=== PATIENT | female | born 1950 | race Caucasian/White ===

== ENCOUNTER 2016-11-02 13:37 | Emergency (ER) | payer MEDICARE, OTHER ==
[~2016-11-02] VITALS: Ht 172.7 cm; Wt 72.6 kg
[2016-11-02 14:59] VITALS: BP 88/30
[2016-11-02] MEDS ORDERED: LORazepam 2 MG/ML VIAL IM ONE (15:00)
--- NOTE | 2016-11-02 15:11 | PHYS DOC ---
General Chief Complaint: MECHANICAL FALL Stated Complaint: FALL Time Seen by MD: 14:26 Source: patient, [facility] records Exam Limitations: clinical condition Problems: History of Present Illness Initial Comments Patient is a 66-year-old female sent to the emergency department from [facility] for evaluation of fall injury. detention records indicate that the patient apparently lost her balance and fell hitting the top of her head at 2 AM. 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 The fall was over 12 hours ago she has a small 1 cm scalp laceration which is scabbed over. There is mild bruising surrounding but no open wound. It is unknown whether the patient has any new neurologic deficits, it is also reported that the patient was having some neck pain. When asked the patient was able to communicate that her scalp pain was 3 out of 10 but it is impossible to tell if she is hurting otherwise. No other real history is obtainable from the patient has her neurologic diseases severe. Occurred: this morning Severity: mild Injuries/Pain Location: head Context: lost balance Loss of Consciousness: no loss of consciousness Modifying Factors: improves with other Associated Symptoms: headache, other Allergies: Coded Allergies: latex (Verified Allergy, Unknown, rash, 02/22/16) Past Medical History Medical History: other (Walterville's disease, anxiety, hypothyroidism, seizures , dystonia) Surgical History: other (neck surgery NOS) Social History Smoker: non-smoker Alcohol: none Drugs: none Review of Systems Constitutional: denies chills, denies fever Ears, Nose, Mouth, Throat: denies ear discharge, denies nose discharge, denies epistaxis Respiratory: denies cough, denies shortness of breath Cardiovascular: denies edema, denies syncope Gastrointestinal: denies diarrhea, denies nausea, denies vomiting Genitourinary: denies dysuria, denies frequency, denies hematuria Musculoskeletal: see HPI, denies joint swelling Psychiatric/Neurological: see HPI Physical Exam General Appearance: no apparent distress (disheveled and) Head: other (a 1 cm scab scalp laceration is noted at the right FOOT, otherwise the head is normocephalic atraumatic negative Bansal sign negative raccoon eyes) Eyes: bilateral eye normal inspection, bilateral eye PERRL, bilateral eye other (as tested) Ears, Nose, Mouth, Throat: hearing grossly normal, no evidence of ENT injury ( no ear or nose discharge no fluid visualized behind TMs), no dental injury Neck: full range of motion, normal inspection Cardiovascular/Respiratory: normal peripheral pulses, normal breath sounds Gastrointestinal: non tender, soft Back: no CVA tenderness, no vertebral tenderness Extremities: normal range of motion, non-tender, no pedal edema, pelvis stable Neurologic/Psychiatric: alert, other (appears oriented 3 although communication nearly impossible, cranial nerves normal as tested no lateralizing neuro deficits, constant hemiballismus take an choreatic movements) Skin: warm/dry [place] Coma Score Best Eye Response: (4) open spontaneously Best Verbal Response: (5) oriented Best Motor Response: (6) obeys commands Jah Total: 15 Orders, Labs, Meds Ativan given to the patient to try to quell her movements it is a when necessary med listed on her marked 1509: RN notifies me that the patient has fallen asleep. He will take this opportunity to obtain CT head and cervical spine to rule out any traumatic pathology resulted from a fall. PATIENT: CRIS LACY ACCOUNT: [id number] : 1950 LOCATION: ER AGE: 66 SEX: F EXAM STATUS: REG ER ORD. PHYSICIAN: IVIS RAIN DO REASON: fall, head/neck pain PROCEDURE: CT HEAD AND CERVICAL SPINE WO CT head and cervical spine without contrast 11/02/2016 at 1515 hours Indication: Fall, head and neck pain. Comparison: None available Technique: Multiple axial noncontrast CT images of the head were obtained from the skull base through the vertex. Multiple axial noncontrast CT images of the cervical spine were obtained. Coronal and sagittal reformats are provided. Findings: Examination is markedly limited by motion artifact. Additionally, streak artifact from calvaria limits evaluation for small extra-axial hemorrhage calvaria appears to be intact. Ventricles are enlarged, slightly at a proportion to parenchymal volume loss. Low attenuation in the periventricular and subcortical white matter is noted. No acute intracranial hemorrhage is visualized. There is no midline shift. There is no large mass. There is straightening of the normal cervical lordosis. Anterior cervical discectomy and fusion hardware is identified at C5-C7. Markedly limited for evaluation of cervical spine fractures secondary to significant motion artifact. No significantly displaced fracture is visualized. There is moderate cervical spondylosis. Impression: Markedly limited evaluation secondary to motion artifact. No definite intracranial hemorrhage is visualized. Markedly limited for evaluation of cervical spine fractures. However no large displaced fracture is visualized. PQRS Compliance Statement: One or more of the following individualized dose reduction techniques were utilized for this examination: 1. Automated exposure control 2. Adjustment of the mA and/or kV according to patient size 3. Use of iterative reconstruction technique DICTATED AND SIGNED BY: ENRICO HOLMAN MD DATE: 11/02/16 1536 CC: GRADY SIU MD; IVIS RAIN DO ~ Tetanus status is unknown and we will update that today. Cephalexin for infection prophylaxis and due to surrounding erythema. No wound closure as it in greater than 12 hours and the wound is already scabbed with hemostasis achieved. Tylenol for discomfort, follow-up with primary for wound check in 3-5 days. Departure Time of Disposition: 16:07 Disposition: 01 HOME, SELF-CARE Diagnosis: mechanical fall, scalp laceration, presumed concus Condition: GOOD Patient Instructions: Fall Prevention and Home Safety, [id number] Additional Instructions: Wash wound daily keeping it clean and dry. Fall precautions. [id number] Tylenol as needed. Prescription: Cephalexin Follow-up with primary in 3-5 days for wound check. Return to ED with new or changing symptoms. IVIS RAIN DO Nov 02, 2016 15:11
[2016-11-02] MEDS ORDERED: IV NORMAL SALINE 1,000ML 1,000 ML IV SCH (15:30)
--- NOTE | 2016-11-02 15:45 | RAD ---
CT head and cervical spine without contrast 11/02/2016 at 1515 hours Indication: Fall, head and neck pain. Comparison: None available Technique: Multiple axial noncontrast CT images of the head were obtained from the skull base through the vertex. Multiple axial noncontrast CT images of the cervical spine were obtained. Coronal and sagittal reformats are provided. Findings: Examination is markedly limited by motion artifact. Additionally, streak artifact from calvaria limits evaluation for small extra-axial hemorrhage calvaria appears to be intact. Ventricles are enlarged, slightly at a proportion to parenchymal volume loss. Low attenuation in the periventricular and subcortical white matter is noted. No acute intracranial hemorrhage is visualized. There is no midline shift. There is no large mass. There is straightening of the normal cervical lordosis. Anterior cervical discectomy and fusion hardware is identified at C5-C7. Markedly limited for evaluation of cervical spine fractures secondary to significant motion artifact. No significantly displaced fracture is visualized. There is moderate cervical spondylosis. Impression: Markedly limited evaluation secondary to motion artifact. No definite intracranial hemorrhage is visualized. Markedly limited for evaluation of cervical spine fractures. However no large displaced fracture is visualized. PQRS Compliance Statement: One or more of the following individualized dose reduction techniques were utilized for this examination: 1. Automated exposure control 2. Adjustment of the mA and/or kV according to patient size 3. Use of iterative reconstruction technique
[2016-11-02] MEDS ORDERED: CEPH500C PO (16:09)
== END 2016-11-02 16:46 | disposition home or self-care (01) ==
LOC: ER 13:37
DX: S01.01XA Laceration without foreign body of scalp, initial encounter (principal); M54.2 Cervicalgia; F41.9 Anxiety disorder, unspecified; E03.9 Hypothyroidism, unspecified; W01.198A Fall on same level from slipping, tripping and stumbling with subsequent striking against other object, initial encounter; Y93.89 Activity, other specified; Y92.89 Other specified places as the place of occurrence of the external cause; Y99.8 Other external cause status
CPT/HCPCS: 70450; 72125; 96360; 96372; 99284; J2060; J7030

== ENCOUNTER 2018-12-20 13:04 | Emergency (ER) | payer MEDICARE, OTHER ==
[~2018-12-20] VITALS: Ht 172.7 cm; Wt 57.6 kg
[~2018-12-20 13:04] MED LIST: CEPH500C PO
--- NOTE | 2018-12-20 13:35 | PHYS DOC ---
Past History Past Medical History: Hypothyroid, Other Past Surgical History: Other Alcohol Use: None Drug Use: None Adult General Chief Complaint Chief Complaint: HEAD INJURY/TRAUMA HPI HPI 68-year-old female presents via EMS from her care facility after fall. The patient was sitting in a chair and fell out of her chair. She struck the side of her head on something on her way down and sustained a laceration. It was bleeding quite a bit and it appeared she needed sutures. They decided to call EMS and sent her to the emergency room. The patient is on hospice. She has Livingston's disease. She has occasional falls, but has not sustained a laceration recently. Her tetanus is not up-to-date. History is gleaned from her daughter who works in the emergency room as well as EMS. Review of Systems Review of Systems Constitutional: Denies fever or chills [] Eyes: Denies change in visual acuity, redness, or eye pain [] HENT: Denies nasal congestion or sore throat [] Respiratory: Denies cough or shortness of breath [] Cardiovascular: No additional information not addressed in HPI [] GI: Denies abdominal pain, nausea, vomiting, bloody stools or diarrhea [] : Denies dysuria or hematuria [] Musculoskeletal: Denies back pain or joint pain [] Integument: Scalp laceration[] Neurologic: Denies headache, focal weakness or sensory changes [] Endocrine: Denies polyuria or polydipsia [] All other systems were reviewed and found to be within normal limits, except as documented in this note. Current Medications Current Medications Current Medications Medications (Trade) Dose Ordered Sig/Madhu Start Time Stop Time Status Last Admin Dose Admin Diphtheria/ Tetanus/Acell Pertussis (Boostrix) 0.5 ml ONCE ONCE 12/20/18 13:30 12/20/18 13:31 UNV Allergies Allergies Allergies Coded Allergies Type Severity Reaction Last Updated Verified latex Allergy Unknown rash 02/22/16 Yes shellfish derived Allergy Unknown 12/20/18 Yes Physical Exam Physical Exam Constitutional: Well developed, well nourished, no acute distress, non-toxic appearance. [] HENT: Normocephalic, atraumatic, bilateral external ears normal, oropharynx moist, no oral exudates, nose normal. [] Eyes: PERRLA, EOMI, conjunctiva normal, no discharge. [] Neck: Normal range of motion, no tenderness, supple, no stridor. [] Cardiovascular:Heart rate regular rhythm, no murmur [] Lungs & Thorax: Bilateral breath sounds clear to auscultation [] Abdomen: Bowel sounds normal, soft, no tenderness, no masses, no pulsatile masses. [] Skin: 2 lacerations of the left scalp. One is linear 4 cm long and the other is linear 1 cm long.[] Back: No tenderness, no CVA tenderness. [] Extremities: No tenderness, no cyanosis, no clubbing, ROM intact, no edema. [] Neurologic: Alert and oriented X 3, normal motor function, normal sensory function, no focal deficits noted. [] Psychologic: Affect normal, judgement normal, mood normal. [] EKG EKG [] Radiology/Procedures Radiology/Procedures [] Course & Med Decision Making Course & Med Decision Making Pertinent Labs and Imaging studies reviewed. (See chart for details) The patient's labs are unremarkable. Her urinalysis is suggestive of UTI. I will treat her with 1 g of Rocephin IV in the ED. I have given her 2 mg of morphine for pain. Her lacerations were repaired with asuncion. She noted below for more details. I will discharge the patient with an additional 5 days of Cefdinir for her UTI. [] Dragon Disclaimer Dragon Disclaimer This electronic medical record was generated, in whole or in part, using a voice recognition dictation system. Laceration Repair Lac Repair Indication: []2 linear lacerations of the left parietal scalp. One 3 cm and the other 1.5 cm Procedure: Consent was obtained from the patient's family member for staple repair of her 2 scalp lacerations. No anesthesia was used. The wounds were thoroughly irrigated with normal saline. No foreign bodies were found. I repaired the 3 cm laceration with 4 asuncion. I repaired the 1.5 cm laceration with 2 asuncion. There was good skin approximation. No dressing was applied. Total repaired wound length: 3cm, 1.5cm Other Items: None The patient tolerated the procedure well. Complications: None. Departure Departure: Impression: Primary Impression: Fall from chair Additional Impressions: Laceration of scalp without complication UTI (urinary tract infection) Disposition: 01 HOME, SELF-CARE Condition: IMPROVED Referrals: GRADY SIU MD (PCP) Patient Instructions: Staple Wound Closure, Ipac-[id number], Urinary Tract Infection, Blgj-ys-Rjfi Scripts Cefdinir (CEFDINIR) 300 Mg Capsule 1 CAP PO BID for UTI for 5 Days, #10 CAP Prov: YUSRA HIDALGO DO 12/20/18 Problem Qualifiers Primary Impression: Fall from chair Encounter type: initial encounter Qualified Codes: W07.XXXA - Fall from chair, initial encounter Additional Impressions: Laceration of scalp without complication Encounter type: initial encounter Qualified Codes: S01.01XA - Laceration without foreign body of scalp, initial encounter UTI (urinary tract infection) Urinary tract infection type: acute cystitis Hematuria presence: with hematuria Qualified Codes: N30.01 - Acute cystitis with hematuria YUSRA HIDALGO DO Dec 20, 2018 13:35
--- NOTE | 2018-12-20 13:59 | RAD ---
CT HEAD INDICATION: Fall COMPARISON: 11/02/2016 Exposure: One or more of the following individualized dose reduction techniques were utilized for this examination: 1. Automated exposure control 2. Adjustment of the mA and/or kV according to patient size 3. Use of iterative reconstruction technique TECHNIQUE: 5 mm contiguous axial images were obtained from the skull base to the vertex in both bone and soft tissue algorithm. FINDINGS: Examination very limited due to motion artifact. Moderate bilateral periventricular white matter hypodensities likely chronic small vessel ischemic disease. Mild soft tissue swelling identified in the left frontoparietal scalp region likely secondary to contusion. No evidence of acute intracranial hemorrhage. No extra-axial fluid collections. No mass effect or midline shift. Ventricular size is appropriate. Basal cisterns are patent. No fractures identified.Costello-white differentiation is preserved.Globes and orbits are within normal limits. Paranasal sinuses and mastoid air cells are clear. IMPRESSION: 1. No acute intracranial findings. 2. Mild soft tissue swelling identified in the left frontoparietal scalp region likely secondary to contusion. Electronically signed by: Ky Austin MD (12/20/2018 1:56 PM) [id number]
[2018-12-20] MEDS ORDERED: DIPHTH,PERTUSS(ACELL),TET TOX 0.5 ML DISP.SYRIN. VAX IM ONE (14:00)
[2018-12-20 14:09] LABS: BASO % 1 % (0-3); EOS # 0.1 x10^3/uL (0.0-0.7); EOS % 2 % (0-3); HEMATOCRIT 44.3 % (36.0-47.0); HEMOGLOBIN 14.4 g/dL (12.0-15.5); LYMPH % 22 % (24-48); MEAN CORPUSCULAR HEMOGLOBIN 32 pg (25-35); MEAN CORPUSCULAR HGB CONC 32 g/dL (31-37); MEAN CORPUSCULAR VOLUME 98 fL (79-100); MONO # 0.5 x10^3/uL (0.0-1.1); MONO % 12 % (0-9); NEUT # 2.9 x10^3uL (1.8-7.7); NEUT % 65 % (31-73); PLATELET COUNT 196 x10^3/uL (140-400); RED CELL DISTRIBUTION WIDTH 13.8 % (11.5-14.5); WHITE BLOOD COUNT 4.5 x10^3/uL (4.0-11.0)
[2018-12-20] MEDS ORDERED: MORPHINE SULFATE 2 MG/ML DISP.SYRIN. IV ONE (14:15)
[2018-12-20 14:20] LABS: ALBUMIN 3.3 g/dL (3.4-5.0); CALCIUM 8.3 mg/dL (8.5-10.1); CREATININE 0.7 mg/dL (0.6-1.0); GFR 82.7; POTASSIUM 4.1 mmol/L (3.5-5.1); TOTAL BILIRUBIN 0.4 mg/dL (0.2-1.0); TOTAL PROTEIN 6.7 g/dL (6.4-8.2)
[2018-12-20 14:37] LABS: BACTERIA,URINE MOD /HPF (0-FEW); BILIRUBIN,URINE NEG (NEG); CLARITY,URINE HAZY; COLOR,URINE YELLOW; GLUCOSE,URINE NEG (NEG); NITRITE,URINE POS (NEG); SQUAMOUS EPITHELIAL CELL,UR MOD /LPF; UROBILINOGEN,URINE 0.2 mg/dL (0.2 mg/dL)
[2018-12-20] MEDS ORDERED: cefTRIAXone SODIUM 1 GM VIAL ONE (14:59)
[2018-12-20] MEDS ORDERED: IV NORMAL SALINE 50ML 50 ML ONE (14:59)
[2018-12-20] MEDS ORDERED: CEFD300C PO (15:12)
[2018-12-20 15:24] VITALS: BP 108/60
== END 2018-12-20 16:00 | disposition home or self-care (01) ==
LOC: ER 13:04
DX: S01.01XA Laceration without foreign body of scalp, initial encounter (principal); N30.01 Acute cystitis with hematuria; E03.9 Hypothyroidism, unspecified; Z91.040 Latex allergy status; Z91.013 Allergy to seafood; W07.XXXA Fall from chair, initial encounter; Y93.89 Activity, other specified; Y92.89 Other specified places as the place of occurrence of the external cause; Y99.8 Other external cause status
CPT/HCPCS: 12002; 36415; 70450; 80053; 81001; 85025; 87086; 90471; 90715; 96365; 96366; 96375; 99285; J0696; J2270; P9612; 87186

== ENCOUNTER 2019-05-29 09:57 | Emergency (ER) | payer MEDICARE, OTHER ==
[~2019-05-29] VITALS: Ht 172.7 cm; Wt 63.0 kg
[~2019-05-29 09:57] MED LIST changes: +CEFD300C PO
[2019-05-29] MEDS ORDERED: ONDANSETRON PF 4 MG/2 ML VIAL. IVP ONE (10:15)
[2019-05-29] MEDS ORDERED: IV NORMAL SALINE 1,000ML 1,000 ML IV ONE (10:15)
--- NOTE | 2019-05-29 10:24 | PHYS DOC ---
Past History Past Medical History: Anxiety, Depression, Hypothyroid, Other Additional Past Medical Histor: BARRY'S DISEASE, DYSTONIA, TREMORS Past Surgical History: , Other Additional Past Surgical Histo: NECK Alcohol Use: None Drug Use: None General Adult EDM: Chief Complaint: NAUSEA/VOMITING/DIARRHEA HPI: HPI: 68-year-old female presents via EMS from her nursing care facility with vomiting and inability to eat for last 2 to 3 days. She has been having intermittent vomiting for 4 days, but she has not been eating yesterday and today. 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 Her daughter is our desk monitor in the emergency room. The patient does not talk to me when asked questions. She does not express any specific complaints. Her daughter tells me this is not unusual. She was not reported to have a fever at the care facility. She has had no known coronavirus contacts. No positive cases at her care facility. Review of Systems: Review of Systems: Provided by daughter and care facility summary Constitutional: Denies fever or chills Eyes: Denies change in visual acuity HENT: Denies nasal congestion or sore throat Respiratory: Denies cough or shortness of breath Cardiovascular: Denies chest pain or edema GI: nausea, vomiting. Denies bloody stools or diarrhea : Denies dysuria Musculoskeletal: Denies back pain or joint pain Integument: Denies rash Neurologic: Denies headache, focal weakness or sensory changes Endocrine: Denies polyuria or polydipsia Lymphatic: Denies swollen glands Psychiatric: Schleicher's disease Heart Score: Risk Factors: Risk Factors: DM, Current or recent (<one month) smoker, HTN, HLP, family history of CAD, obesity. Risk Scores: Score 0 - 3: 2.5% MACE over next 6 weeks - Discharge Home Score 4 - 6: 20.3% MACE over next 6 weeks - Admit for Clinical Observation Score 7 - 10: 72.7% MACE over next 6 weeks - Early Invasive Strategies Current Medications: Current Meds: Current Medications Medications (Trade) Dose Ordered Sig/Madhu Start Time Stop Time Status Last Admin Dose Admin Ondansetron HCl (Zofran) 4 mg 1X ONCE 05/29/19 10:15 05/29/19 10:16 DC Sodium Chloride 1,000 ml @ 1,000 mls/hr 1X ONCE 05/29/19 10:15 05/29/19 11:14 Allergies: Allergies: Allergies Coded Allergies Type Severity Reaction Last Updated Verified latex Allergy Unknown rash 02/22/16 Yes shellfish derived Allergy Unknown 12/20/18 Yes Physical Exam: PE: Constitutional: Well developed, well nourished, thin, no acute distress, non- toxic appearance. [] HENT: Normocephalic, atraumatic, bilateral external ears normal, oropharynx moist, no oral exudates, nose normal. [] Eyes: PERRLA, EOMI, conjunctiva normal, no discharge. [] Neck: Normal range of motion, no tenderness, supple, no stridor. [] Cardiovascular: Heart rate regular rhythm, no murmur [] Lungs & Thorax: Bilateral breath sounds clear to auscultation [] Abdomen: Bowel sounds normal, soft, no tenderness, no masses, no pulsatile masses. [] Skin: Slightly jaundiced, warm, dry, no erythema, no rash. [] Back: No tenderness, no CVA tenderness. [] Extremities: No tenderness, no cyanosis, no clubbing, ROM intact, no edema. [] Neurologic: Alert and oriented X 3, no focal deficits noted. [] Psychologic: Affect at baseline [] EKG: EKG: [] Radiology/Procedures: Radiology/Procedures: [] Impressions: ABDOMEN LTD: 05/29/2019 12:22 PM Indication: 68 years old Female. Elevated liver enzymes, bilirubin. Comparison: None. TECHNIQUE: Sonographic evaluation of the right upper quadrant was performed utilizing grayscale and color Doppler imaging. FINDINGS: Liver: Homogenous normal echotexture.. There is hepatopedal flow within the portal venous system. Biliary system: CBD measures 12.4 mm. There is intrahepatic and extra hepatic biliary ductal dilatation. Gallbladder: Cholelithiasis with gallbladder wall thickening. No definite pericholecystic fluid . Pancreas: Visualized head and uncinate process are unremarkable. Body and tail are not visualized. Right kidney: 11.6 x 5.1 x 4.1 cm. No hydronephrosis. Normal echotexture without focal mass or renal calculus. Free fluid:None. IMPRESSION: 1. Cholelithiasis with gallbladder wall thickening as may be seen with acute cholecystitis. Dilated CBD may reflect choledocholithiasis. Further evaluation with MRCP is recommended. There is intrahepatic and extrahepatic bladder ductal dilatation. Electronically signed by: Enrico Holman MD (05/29/2019 2:00 PM) [facility] [place] DICTATED AND SIGNED BY: ENRICO HOLMAN MD DATE: 05/29/19 1400 CC: YUSRA HIDALGO DO; NESS JOYNER MD ~ CT scan of the abdomen and pelvis without contrast 05/29/2019 CLINICAL HISTORY: Abdominal pain with elevated lipase. TECHNIQUE: Unenhanced, contiguous, 3 mm axial sections were obtained through the abdomen and pelvis. One or more of the following individualized dose reduction techniques were utilized for this study: 1. Automated exposure control. 2. Adjustment of the mA and/or kV according to patient size. 3. Use of iterative reconstruction technique. FINDINGS: Comparison is made to the patient's ultrasound of the right upper quadrant of the abdomen performed earlier today. Images through the lung bases demonstrate mild cardiomegaly. Bilateral lower lobe atelectasis and/or infiltrate, right greater than left is seen. Mild intrahepatic biliary ductal dilatation is seen. Small punctate calcified granulomas are seen scattered throughout the spleen. The right adrenal gland and kidneys are within normal limits. A 2.9 cm rounded low-attenuation nodule is seen involving the left adrenal gland consistent with an adrenal adenoma. Faint increased attenuation is seen within the fat surrounding the body/tail of pancreas which may reflect mild acute pancreatitis. No pancreatic pseudocyst is seen. The gallbladder is distended. Partially calcified gallstones are seen within the gallbladder. The gallbladder wall is thickened. Pericholecystic fluid is seen. These findings are consistent with acute cholecystitis. The common hepatic and common bile ducts are dilated measuring 1.5 cm in diameter. Partially calcified stones are seen within the distal common bile duct at the level of the ampulla which measure 5 mm to 1.1 cm in size. Atherosclerotic calcification of the abdominal aorta is seen. The abdominal aorta tapers normally. There is no evidence of bowel obstruction. Images through the pelvis demonstrate the urinary bladder distended with urine. A moderate amount of stool is seen within the rectum and sigmoid colon. Calcifications are seen within the pelvis consistent with phleboliths. Degenerative changes are seen involving the lower thoracic and throughout the lumbar spine along with both hips. IMPRESSION: CT findings are seen consistent with acute cholecystitis with evidence of biliary obstruction related to choledocholithiasis. Increased density is seen within the fat surrounding the body/tail of the pancreas which may reflect mild pancreatitis. No pancreatic pseudocyst is seen. Electronically signed by: Austen Gardner MD (05/29/2019 3:25 PM) [id number] DICTATED AND SIGNED BY: AUSTEN GARDNER MD DATE: 05/29/19 1525 CC: YUSRA HIDALGO DO; NESS JOYNER MD ~ Course & Med Decision Making: Course & Med Decision Making Pertinent Labs and Imaging studies reviewed. (See chart for details) Patient has significantly elevated white count. She also has diffusely elevated liver enzymes. Her bilirubin and direct bilirubin are elevated suggesting an obstructive problem. Ultrasound of the gallbladder shows possible cholecystitis and possible blockage with choledocholithiasis. Her lipase is over 4000 so she has pancreatitis. I have ordered a CT scan and a lactic acid. I will give the patient Zosyn antibiotic. I spoke with Dr. Pérez and he has accepted the patient for transfer to [facility] for ERCP and further management. The patient's power of claim attorney is in agreement with this plan. The patient will go by ambulance. The patient CT of the abdomen and pelvis confirmed loss likely cholecystitis as well as a partially calcified stone in the common bile duct. 43 minutes of critical care time was spent on this patient exclusive of other billable procedures. [] Dragon Disclaimer: Dragon Disclaimer: This electronic medical record was generated, in whole or in part, using a voice recognition dictation system. Departure Departure: Impression: Primary Impression: Acute cholecystitis Additional Impression: Choledocholithiasis [facility] Physician: Erendira Pérez Condition: GUARDED Referrals: NESS JOYNER MD (PCP) YUSRA HIDALGO DO May 29, 2019 10:24
[2019-05-29 10:30] LABS: BASO % 0 % (0-3); EOS % 0 % (0-3); HEMATOCRIT 46.6 % (36.0-47.0); HEMOGLOBIN 15.8 g/dL (12.0-15.5); LYMPH # 0.3 x10^3/uL (1.0-4.8); LYMPH % 1 % (24-48); MEAN CORPUSCULAR HEMOGLOBIN 34 pg (25-35); MEAN CORPUSCULAR HGB CONC 34 g/dL (31-37); MEAN CORPUSCULAR VOLUME 99 fL (79-100); MONO # 1.3 x10^3/uL (0.0-1.1); MONO % 5 % (0-9); NEUT # 23.9 x10^3uL (1.8-7.7); NEUT % 94 % (31-73); PLATELET COUNT 269 x10^3/uL (140-400); RED BLOOD COUNT 4.71 x10^6/uL (3.50-5.40); RED CELL DISTRIBUTION WIDTH 13.9 % (11.5-14.5); WHITE BLOOD COUNT 25.5 x10^3/uL (4.0-11.0)
[2019-05-29 10:38] LABS: CALCIUM 9.4 mg/dL (8.5-10.1); GFR 54.8; POTASSIUM 3.9 mmol/L (3.5-5.1)
--- NOTE | 2019-05-29 10:42 | RAD ---
KUB INDICATION: Vomiting. COMPARISON: None. FINDINGS: Nonobstructive bowel gas pattern. Multiple gas-filled loops of large bowel. No free air on this limited supine image. Moderate colonic stool burden Limited view of the lower chest demonstrates no acute abnormality. No acute osseous abnormality. IMPRESSION: Nonobstructive bowel gas pattern. Moderate colonic stool burden. Electronically signed by: Rome Beverly MD (05/29/2019 10:39 AM) [id number]
[2019-05-29 10:44] LABS: ALBUMIN 3.3 g/dL (3.4-5.0); ALBUMIN/GLOBULIN RATIO 0.6 (1.0-1.7); TOTAL BILIRUBIN 6.6 mg/dL (0.2-1.0); TOTAL PROTEIN 8.5 g/dL (6.4-8.2)
[2019-05-29 10:59] LABS: % BANDS 10 % (0-9); % LYMPHS 2 % (24-48); % MONOS 4 % (0-10); % SEGS 84 % (35-66)
[2019-05-29 11:00] LABS: PLT ESTIMATE ADEQUATE (ADEQUATE)
[2019-05-29 11:01] LABS: TOXIC VACUOLATION SLIGHT
[2019-05-29 11:15] LABS: CLARITY,URINE CLOUDY; COLOR,URINE AMBER
[2019-05-29 11:17] LABS: BILIRUBIN,URINE LARGE (NEG)
[2019-05-29 11:18] LABS: BACTERIA,URINE MANY /HPF (0-FEW); SQUAMOUS EPITHELIAL CELL,UR OCC /LPF; WBC,URINE >40 /HPF (0-4)
[2019-05-29 13:00] VITALS: BP 137/72
--- NOTE | 2019-05-29 14:03 | RAD ---
ABDOMEN LTD: 05/29/2019 12:22 PM Indication: 68 years old Female. Elevated liver enzymes, bilirubin. Comparison: None. TECHNIQUE: Sonographic evaluation of the right upper quadrant was performed utilizing grayscale and color Doppler imaging. FINDINGS: Liver: Homogenous normal echotexture.. There is hepatopedal flow within the portal venous system. Biliary system: CBD measures 12.4 mm. There is intrahepatic and extra hepatic biliary ductal dilatation. Gallbladder: Cholelithiasis with gallbladder wall thickening. No definite pericholecystic fluid . Pancreas: Visualized head and uncinate process are unremarkable. Body and tail are not visualized. Right kidney: 11.6 x 5.1 x 4.1 cm. No hydronephrosis. Normal echotexture without focal mass or renal calculus. Free fluid:None. IMPRESSION: 1. Cholelithiasis with gallbladder wall thickening as may be seen with acute cholecystitis. Dilated CBD may reflect choledocholithiasis. Further evaluation with MRCP is recommended. There is intrahepatic and extrahepatic bladder ductal dilatation. Electronically signed by: Becka Shields MD (05/29/2019 2:00 PM) [facility] [place]
[2019-05-29] MEDS ORDERED: IOHEXOL 300 MG/ML 75 ML VIAL. IV ONE (14:30)
[2019-05-29] MEDS ORDERED: PIPERACILLIN/TAZOBACTAM 3.375 GM in IV NORMAL SALINE 50ML 50 ML IV ONE (14:30)
--- NOTE | 2019-05-29 15:28 | RAD ---
CT scan of the abdomen and pelvis without contrast 05/29/2019 CLINICAL HISTORY: Abdominal pain with elevated lipase. TECHNIQUE: Unenhanced, contiguous, 3 mm axial sections were obtained through the abdomen and pelvis. One or more of the following individualized dose reduction techniques were utilized for this study: 1. Automated exposure control. 2. Adjustment of the mA and/or kV according to patient size. 3. Use of iterative reconstruction technique. FINDINGS: Comparison is made to the patient's ultrasound of the right upper quadrant of the abdomen performed earlier today. Images through the lung bases demonstrate mild cardiomegaly. Bilateral lower lobe atelectasis and/or infiltrate, right greater than left is seen. Mild intrahepatic biliary ductal dilatation is seen. Small punctate calcified granulomas are seen scattered throughout the spleen. The right adrenal gland and kidneys are within normal limits. A 2.9 cm rounded low-attenuation nodule is seen involving the left adrenal gland consistent with an adrenal adenoma. Faint increased attenuation is seen within the fat surrounding the body/tail of pancreas which may reflect mild acute pancreatitis. No pancreatic pseudocyst is seen. The gallbladder is distended. Partially calcified gallstones are seen within the gallbladder. The gallbladder wall is thickened. Pericholecystic fluid is seen. These findings are consistent with acute cholecystitis. The common hepatic and common bile ducts are dilated measuring 1.5 cm in diameter. Partially calcified stones are seen within the distal common bile duct at the level of the ampulla which measure 5 mm to 1.1 cm in size. Atherosclerotic calcification of the abdominal aorta is seen. The abdominal aorta tapers normally. There is no evidence of bowel obstruction. Images through the pelvis demonstrate the urinary bladder distended with urine. A moderate amount of stool is seen within the rectum and sigmoid colon. Calcifications are seen within the pelvis consistent with phleboliths. Degenerative changes are seen involving the lower thoracic and throughout the lumbar spine along with both hips. IMPRESSION: CT findings are seen consistent with acute cholecystitis with evidence of biliary obstruction related to choledocholithiasis. Increased density is seen within the fat surrounding the body/tail of the pancreas which may reflect mild pancreatitis. No pancreatic pseudocyst is seen. Electronically signed by: Austen Gardner MD (05/29/2019 3:25 PM) [id number]
== END 2019-05-29 16:20 | disposition short-term general hospital (02) ==
LOC: ER 09:57
DX: K80.42 Calculus of bile duct with acute cholecystitis without obstruction (principal); R11.2 Nausea with vomiting, unspecified; E03.9 Hypothyroidism, unspecified; Z91.040 Latex allergy status; Z91.013 Allergy to seafood
CPT/HCPCS: 36415; 74018; 74176; 76705; 80053; 81001; 82248; 83605; 83690; 85007; 85025; 87086; 96360; 96361; 99285-25; J7030